=== PATIENT | male | born 1980 | race Hispanic/Latino ===

== ENCOUNTER → 2023-03-27 | Outpatient (CLI) | payer BC, OTHER, SELFPAY ==
[~2023-03-27] MED LIST: IBUP-2077 PO; IOHEXOL 350 MG/ML 100ML INFUS..BTL IV ONE; ZOLP5TAB8 PO
== END | disposition home or self-care (01) ==
LOC: RAH 07:52
PROVIDERS: ATTEND Student in an Organized Health Care Education/Training Program
DX: R07.9 Chest pain, unspecified (principal)
CPT/HCPCS: 75574; Q9967